=== PATIENT | female | born 1940 | race Caucasian/White ===

== ENCOUNTER → 2016-09-21 | Outpatient (CLI) | payer OTHER, MEDICARE ==
[2016-09-21 12:22] LABS: BILIRUBIN URINE NEGATIVE (NEGATIVE); BLOOD URINE NEGATIVE /UL (NEGATIVE); COLOR URINE YELLOW (YELLOW); GLUCOSE URINE NEGATIVE (NEGATIVE); KETONE URINE NEGATIVE (NEGATIVE); LEUKOCYTES URINE 25 /UL (NEGATIVE); NITRITE URINE NEGATIVE (NEGATIVE); PH URINE 6.5 (4.0-8.0); PROTEIN URINE NEGATIVE (NEGATIVE); SPEC GRAVITY URINE 1.015 (1.003-1.035); TURBIDITY URINE 1+ (CLEAR); UROBILINOGEN URINE 1 mg/dL (NORMAL)
[2016-09-21 12:31] LABS: BACTERIA URINE MODERATE (NEGATIVE); MUCUS URINE 2+ (NEGATIVE); RBC URINE 0-2 #/HPF (NEGATIVE)
[2016-09-21 12:32] LABS: AMORPHOUS URINE 1+ (NEGATIVE); HYALINE CAST URINE 0-2 #/LPF (NEGATIVE)
== END ==
LOC: LJOHN2 11:59
PROVIDERS: Internal Medicine
DX: R52 Pain, unspecified (principal); G62.9 Polyneuropathy, unspecified

== ENCOUNTER → 2016-09-24 | Outpatient (CLI) | payer OTHER, MEDICARE ==
[2016-09-24 12:55] LABS: BASOPHIL # 0.1 K/uL (0.0-0.2); BASOPHIL % 0.6 %; EOSINOPHIL # 0.2 K/uL (0.0-0.5); EOSINOPHIL % 2.6 %; HEMATOCRIT 33.1 % (33.0-46.0); HEMOGLOBIN 10.6 g/dL (10.0-15.0); IMMATURE GRANULOCYTE # 0.1 K/uL (0.0-0.3); IMMATURE GRANULOCYTE % 0.9 %; LYMPHOCYTE # 1.9 K/uL (0.8-4.0); LYMPHOCYTE % 22.6 %; MCH 29.6 pg (27.0-34.0); MCV 92.5 fl (83.0-98.0); MONOCYTE # 0.6 K/uL (0.0-1.0); MONOCYTE % 7.6 %; MPV 8.8 fl (9.4-12.4); NEUTROPHIL # (ANC) 5.4 K/uL (1.8-7.8); NEUTROPHIL % 65.7 %; NRBC % 0 /100WBC (0-0.00); PLATELET COUNT 591 K/uL (150-450); RBC 3.58 M/uL (3.50-5.50); RDW-CV 17.2 % (11.9-14.6); WBC 8.2 K/uL (4.0-11.0)
== END ==
LOC: LJOHN2 12:37
PROVIDERS: Internal Medicine
DX: S72.002D Fracture of unspecified part of neck of left femur, subsequent encounter for closed fracture with routine healing (principal); M62.81 Muscle weakness (generalized); R53.1 Weakness